=== PATIENT | male | born 1985 | race Caucasian/White ===

== ENCOUNTER 2020-10-20 17:14 | Emergency (ER) | payer BC ==
[2020-10-20 17:28] VITALS: BP 119/70; PULSE 78; TEMP 97.7; BMI 27.9
== END 2020-10-20 20:25 | disposition home or self-care (01) ==
LOC: JER 17:14
DX: J12.82 Pneumonia due to coronavirus disease 2019 (principal)
CPT/HCPCS: 71046-TC-FY; 99283-25

== ENCOUNTER 2022-08-22 11:24 | Emergency (ER) | payer BC ==
[2022-08-22 11:51] VITALS: BP 102/61; PULSE 60; RESP 18; TEMP 98; BMI 26.8
== END 2022-08-22 13:41 | disposition home or self-care (01) ==
LOC: FER 11:24
DX: R55 Syncope and collapse (principal)
CPT/HCPCS: 70450-TC; 99284-25